=== PATIENT | male | born 1970 | race Caucasian/White ===

== ENCOUNTER 2018-02-04 20:57 | Emergency (ER) | payer BC ==
[~2018-02-04] VITALS: Ht 175.3 cm; Wt 89.8 kg
--- NOTE | 2018-02-04 21:24 | Emergency Room Report ---
History of Present Illness General Chief Complaint: Lower Extremity Injury Source: Patient Present Illness HPI Is a 47-year-old male with no past medical history. He presents with chief complaint of left leg pain. Was playing baseball this afternoon. He was in the batter box and a foul ball hit him in the left lower leg area. He is able to walk on it but painful. Pain is 7 out of 10. Worse with palpation. Better with rest There is some bruising and swelling. No other injury. Allergies: Coded Allergies: No Known Allergies (Unverified , 02/04/18) Patient History Past Medical History: see triage record, old chart reviewed Past Surgical History: none Pertinent Family History: none Social History: Denies: smoking Immunizations: other Reviewed Nursing Documentation: PMH: Agreed; PSxH: Agreed Nursing Documentation-PMH Past Medical History: No Stated History Review of Systems Eye: Denies: eye pain, blurred vision ENT: Denies: ear pain, nose congestion, throat swelling Respiratory: Denies: cough, shortness of breath Cardiovascular: Denies: chest pain, palpitations Gastrointestinal: Denies: abdominal pain, diarrhea, nausea, vomiting Musculoskeletal: Reports: joint pain, muscle pain; Denies: back pain Skin: Denies: rash Neurological: Denies: headache, numbness Endocrine: Denies: increased thirst, increased urine Hematologic/Lymphatic: Denies: easy bruising All Other Systems: negative except mentioned in HPI Physical Exam Vital Signs Date Time Temp Pulse Resp B/P (MAP) Pulse Ox O2 Delivery O2 Flow Rate FiO2 02/04/18 21:06 98.2 78 15 120/65 97 Room Air vitals normal Sp02 EP Interpretation: reviewed, normal General Appearance: well appearing, no apparent distress, alert Head: normocephalic, atraumatic Eyes: bilateral eye PERRL, bilateral eye EOMI ENT: hearing grossly normal, normal pharynx Neck: full range of motion, supple, no meningismus Respiratory: chest non-tender, lungs clear, normal breath sounds Cardiovascular #1: regular rate, rhythm, no murmur Gastrointestinal: normal bowel sounds, non tender, no mass, no organomegaly, no bruit, non-distended Musculoskeletal: back normal, gait/station normal, normal range of motion, tender - Left lower extremity: There is a circular 4 cm ecchymosis and hematoma to the inner aspect of the lower tib-fib area. Tender to palpation. No crepitus. Ankle and knee is stable. Psychiatric: mood/affect normal Skin: warm/dry Procedures Splinting Splinting : Consent: Verbal Location: Left tib-fib Pre-Made Type: WENDY wrap Pre-Proc Neuro Vasc Exam: normal Post-Proc Neuro Vasc Exam: normal Patient Tolerated: Well Complications: None Medical Decision Making Diagnostic Impression: Primary Impression: Contusion of left lower leg, initial encounter ER Course Patient with soft tissue injury to his leg. No fracture. We'll discharge home. Other X-Ray Diagnostic Results Other X-Ray Diagnostic Results : X-Ray ordered: Left tib-fib # of Views/Limited Vs Complete: 3 View Indication: Pain EP Interpretation: Yes Interpretation: no dislocation, no soft tissue swelling, no fractures Impression: No acute disease Electronically Signed by: Natanael Balbuena mD Last Vital Signs Date Time Temp Pulse Resp B/P (MAP) Pulse Ox O2 Delivery O2 Flow Rate FiO2 02/04/18 21:06 98.2 78 15 120/65 97 Room Air Status: improved Disposition: HOME, SELF-CARE Condition: Stable Scripts Ibuprofen* (MOTRIN*) 600 Mg Tablet 600 MG ORAL THREE TIMES A DAY, #30 TAB 0 Refills Prov: Natanael Balbuena MD 02/04/18 Hydrocodone/Acetaminophen 5-325* (HYDROCODONE/ACETAMINOPHEN 5-325*) 1 Each Tablet 1 TAB ORAL Q6H PRN for For Pain, #10 TAB 0 Refills Prov: Natanael Balbuena MD 02/04/18 Additional Instructions: Ice pack to the area. Follow-up with your doctor in 7 days. Return if worse. Natanael Balbuena MD Feb 04, 2018 21:24
[2018-02-04] MEDS ORDERED: HYDROCODON-ACE1 EA15 ORAL (22:58)
[2018-02-04] MEDS ORDERED: IBUPROFEN600 MG ORAL (22:58)
[2018-02-04 23:14] VITALS: BP 120/65
--- NOTE | 2018-02-05 10:53 | Diagnostic Imaging Report ---
Indication: Trauma, pain, struck with baseball Technique: 2 views of the left tibia and fibula Comparison: Findings: No acute fractures. No dislocations. No radiopaque foreign body. Impression: Negative
== END 2018-02-04 23:15 | disposition home or self-care (01) ==
LOC: EMR 21:29
DX: S80.12XA Contusion of left lower leg, initial encounter (principal); W21.03XA Struck by baseball, initial encounter; Y93.64 Activity, baseball; Y92.89 Other specified places as the place of occurrence of the external cause
CPT/HCPCS: 99283